=== PATIENT | female | born 1990 | race Caucasian/White ===

== ENCOUNTER 2019-03-30 07:20 | Inpatient (IN) | payer OTHER ==
[~2019-03-30] VITALS: Ht 154.9 cm; Wt 88.5 kg
[2019-03-30] MEDS ORDERED: FERR325E14 PO (07:37)
[2019-03-30] MEDS ORDERED: PREN-380 PO (07:37)
[2019-03-30] MEDS ORDERED: LACTATED RINGERS 1,000 ML IV SCH (07:38)
[2019-03-30] MEDS ORDERED: CITRIC ACID/SODIUM CITRATE 30 ML UDC PO SCH (07:40)
--- NOTE | 2019-03-30 08:06 | NUR ---
PATIENT HAS BEEN SCREENED AND CATEGORIZED LOW NUTRITION RISK. PATIENT WILL BE SEEN WITHIN 7 DAYS OF ADMISSION. 04/05/[address]
[2019-03-30 08:24] LABS: BASOPHILS % (AUTO) 0.4 % (0.0-2.0); EOSINOPHILS # (AUTO) 0.1 K/uL (0-0.4); EOSINOPHILS % (AUTO) 1.1 % (0.0-4.0); HEMATOCRIT 35.8 % (36-48); HEMOGLOBIN 11.9 g/dL (12.0-16.0); LYMPHOCYTES # (AUTO) 1.4 K/uL (2.5-16.5); LYMPHOCYTES % (AUTO) 17.8 % (20.5-51.1); MEAN CORPUSCULAR HEMOGLOBIN 31 pg (27-31); MEAN CORPUSCULAR HGB CONC 33 g/dL (33-37); MEAN CORPUSCULAR VOLUME 92.4 fL (80-94); MONOCYTES # (AUTO) 0.7 K/uL (0.8-1.0); MONOCYTES % (AUTO) 8.8 % (1.7-9.3); NEUTROPHILS # (AUTO) 5.5 K/uL (1.8-7.7); NEUTROPHILS % (AUTO) 71.9 % (42.2-75.2); PLATELET COUNT (AUTO) 84 K/uL (140-450); RED BLOOD CELL COUNT(AUTO) 3.87 MIL/uL (4.20-5.40); RED CELL DISTRIBUTION WIDTH 14.1 % (11.6-13.7); WHITE BLOOD COUNT (AUTO) 7.7 K/uL (4.8-10.8)
[2019-03-30 08:26] LABS: APPEARANCE,URINE CLEAR (CLEAR); BILIRUBIN,URINE NEGATIVE (NEGATIVE); BLOOD, URINE NEGATIVE (NEGATIVE); COLOR,URINE YELLOW (YELLOW); LEUKOCYTE ESTERASE ,URINE NEGATIVE (NEGATIVE); NITRITE, URINE NEGATIVE (NEGATIVE); PH,URINE 6.5 (5.0-9.0); UGLUCOSE NEGATIVE (NEGATIVE)
[2019-03-30 08:41] LABS: PROTHROMBIN TIME 9.3 secs (10.8-13.4)
[2019-03-30] MEDS ORDERED: AMPICILLIN 2,000 MG VIAL ONE (08:45)
[2019-03-30] MEDS ORDERED: MORPHINE PRES FREE 10 MG/10 ML AMP IV ONE (09:49)
[2019-03-30] MEDS ORDERED: DESFLURANE 240 ML BTL INH ONE (10:25)
[2019-03-30] MEDS ORDERED: METOCLOPRAMIDE 10 MG/2 ML INJ VIAL ONE (10:25)
[2019-03-30] MEDS ORDERED: PROPOFOL 200 MG/20 ML VIAL IV ONE (10:25)
[2019-03-30] MEDS ORDERED: SUCCINYLCHOLINE CHLORIDE 200 MG/10 ML VIAL IVP ONE (10:25)
[2019-03-30] MEDS ORDERED: ROCURONIUM 50 MG/5 ML VIAL IV ONE (10:25)
[2019-03-30] MEDS ORDERED: NEOSTIGMINE 1:1000 10 MG/10 ML VIAL ONE (10:25)
[2019-03-30] MEDS ORDERED: DEXAMETHASONE 4 MG/ML VIAL ONE (10:25)
[2019-03-30] MEDS ORDERED: GLYCOPYRROLATE 0.2 MG/ML VIAL ONE (10:25)
[2019-03-30] MEDS ORDERED: ONDANSETRON 4 MG/2 ML VIAL ONE (10:25)
[2019-03-30] MEDS ORDERED: fentaNYL 0.05 MG/ML VIAL ONE (10:52)
[2019-03-30] MEDS ORDERED: MIDAZOLAM 2 MG/2 ML VIAL ONE (10:52)
[2019-03-30] MEDS ORDERED: OXYTOCIN 10 UNITS/ML VIAL ONE (11:10)
[2019-03-30] MEDS ORDERED: HYDROmorphone PFS 2 MG/ML SYR ONE ×2 (11:21→13:16)
[2019-03-30] MEDS ORDERED: OXYTOCIN 20 UNITS in LACTATED RINGERS 1,000 ML IV SCH (13:02)
[2019-03-30] MEDS ORDERED: ONDANSETRON 4 MG/2 ML VIAL IVP PRN (13:05)
[2019-03-30] MEDS ORDERED: OXYTOCIN 20 UNITS/LR PREMIX 1,000 ML IV ONE (13:05)
[2019-03-30] MEDS: HYDROmorphone 1 MG/ML AMP IVP PRN ×4 (13:18→13:48)
[2019-03-30] MEDS ORDERED: MEASLES, MUMPS, AND RUBELLA 1 VIAL SQVAC PRN (13:30)
[2019-03-30] MEDS ORDERED: HYDROmorphone 1 MG/ML AMP IVP PRN (13:30)
[2019-03-30] MEDS: OXYTOCIN 20 UNITS in LACTATED RINGERS 1,000 ML IV SCH (19:35)
[2019-03-30] MEDS: KETOROLAC 30 MG/ML VIAL IVP PRN (20:26)
[2019-03-31] MEDS ORDERED: OXYTOCIN 20 UNITS/LR PREMIX 1,000 ML IV ONE (03:15)
[2019-03-31] MEDS: OXYTOCIN 20 UNITS in LACTATED RINGERS 1,000 ML IV SCH (03:20)
[2019-03-31] MEDS: KETOROLAC 30 MG/ML VIAL IVP PRN ×3 (04:16→22:12)
[2019-03-31] MEDS ORDERED: HYDROmorphone PFS 2 MG/ML SYR IVP PRN (08:25)
[2019-03-31 08:43] LABS: BASOPHILS % (AUTO) 0.2 % (0.0-2.0); EOSINOPHILS % (AUTO) 0.3 % (0.0-4.0); HEMATOCRIT 26.5 % (36-48); HEMOGLOBIN 8.7 g/dL (12.0-16.0); LYMPHOCYTES % (AUTO) 8.8 % (20.5-51.1); MEAN CORPUSCULAR HEMOGLOBIN 31 pg (27-31); MEAN CORPUSCULAR HGB CONC 33 g/dL (33-37); MEAN CORPUSCULAR VOLUME 93.3 fL (80-94); MONOCYTES # (AUTO) 0.7 K/uL (0.8-1.0); MONOCYTES % (AUTO) 6.5 % (1.7-9.3); NEUTROPHILS # (AUTO) 9.6 K/uL (1.8-7.7); NEUTROPHILS % (AUTO) 84.2 % (42.2-75.2); PLATELET COUNT (AUTO) 74 K/uL (140-450); RED BLOOD CELL COUNT(AUTO) 2.85 MIL/uL (4.20-5.40); RED CELL DISTRIBUTION WIDTH 14.3 % (11.6-13.7); WHITE BLOOD COUNT (AUTO) 11.3 K/uL (4.8-10.8)
[2019-03-31] MEDS ORDERED: FUROSEMIDE 40 MG TAB PO SCH (16:15)
[2019-03-31] MEDS ORDERED: FUROSEMIDE 20 MG TAB PO SCH ×2 (16:15→18:00)
[2019-03-31] MEDS ORDERED: FUROSEMIDE 20 MG TAB PO ONE (18:00)
[2019-03-31] MEDS ORDERED: ACETAMINOPHEN 325 MG TAB PO PRN (22:00)
[2019-04-01] MEDS: KETOROLAC 30 MG/ML VIAL IVP PRN (06:04)
[2019-04-01] MEDS ORDERED: SODIUM PHOSPHATE 118 ML ENEM RC PRN (09:00)
[2019-04-01] MEDS: BISACODYL 5 MG TABEC PO SCH (09:35)
[2019-04-01] MEDS: SIMETHICONE 80 MG TAB.CHEW PO SCH ×2 (09:35→13:00)
[2019-04-01] MEDS: DOCUSATE SODIUM 100 MG GELCAP PO SCH (09:35)
[2019-04-01] MEDS: IBUPROFEN 600 MG TAB PO PRN ×2 (11:42→17:17)
[2019-04-02] MEDS: IBUPROFEN 600 MG TAB PO PRN ×2 (02:53→13:23)
[2019-04-02] MEDS: BISACODYL 5 MG TABEC PO SCH ×2 (09:00→13:23)
[2019-04-02] MEDS: DOCUSATE SODIUM 100 MG GELCAP PO SCH (09:43)
[2019-04-03 08:47] LABS: BASOPHILS % (AUTO) 0.3 % (0.0-2.0); EOSINOPHILS # (AUTO) 0.1 K/uL (0-0.4); EOSINOPHILS % (AUTO) 1.7 % (0.0-4.0); HEMATOCRIT 28.1 % (36-48); HEMOGLOBIN 9.2 g/dL (12.0-16.0); LYMPHOCYTES # (AUTO) 1.1 K/uL (2.5-16.5); LYMPHOCYTES % (AUTO) 16.9 % (20.5-51.1); MEAN CORPUSCULAR HEMOGLOBIN 31 pg (27-31); MEAN CORPUSCULAR HGB CONC 33 g/dL (33-37); MEAN CORPUSCULAR VOLUME 93.8 fL (80-94); MONOCYTES # (AUTO) 0.5 K/uL (0.8-1.0); MONOCYTES % (AUTO) 8.6 % (1.7-9.3); NEUTROPHILS # (AUTO) 4.6 K/uL (1.8-7.7); NEUTROPHILS % (AUTO) 72.5 % (42.2-75.2); PLATELET COUNT (AUTO) 119 K/uL (140-450); RED CELL DISTRIBUTION WIDTH 14.4 % (11.6-13.7); WHITE BLOOD COUNT (AUTO) 6.4 K/uL (4.8-10.8)
[2019-04-03] MEDS: SIMETHICONE 80 MG TAB.CHEW PO SCH ×2 (08:57→12:58)
[2019-04-03] MEDS: DOCUSATE SODIUM 100 MG GELCAP PO SCH (08:57)
[2019-04-03] MEDS: BISACODYL 5 MG TABEC PO SCH (08:57)
[2019-04-03] MEDS: IBUPROFEN 600 MG TAB PO PRN (09:00)
[2019-04-03] MEDS ORDERED: INFLUENZA VACCINE QUAD 0.5 ML SYR IM PRN (10:55)
[2019-04-03] MEDS ORDERED: INFLUENZA VACCINE QUAD 0.5 ML SYR IM SCH (11:31)
[2019-04-03] MEDS ORDERED: FERR325E14 PO (12:09)
[2019-04-03] MEDS ORDERED: IBUP-2213 PO (12:11)
== END 2019-04-03 15:25 | disposition home or self-care (01) | DRG 540 ==
LOC: MFCC 07:20
PROVIDERS: ADMIT Obstetrics & Gynecology; ATTEND Obstetrics & Gynecology
PROC: 10D00Z1 Extraction of Products of Conception, Low, Open Approach (ICD-10-PCS; principal; 2019-03-30 10:00)
PROC: 3E0234Z Introduction of Serum, Toxoid and Vaccine into Muscle, Percutaneous Approach (ICD-10-PCS; 2019-04-03)
DX: O34.211 Maternal care for low transverse scar from previous cesarean delivery (principal); Z23 Encounter for immunization; Z37.0 Single live birth; Z3A.38 38 weeks gestation of pregnancy
CPT/HCPCS: 36415; 81003; 85025; 85610; 85730; 86592; 86886; 86900; 86901; 87081; 87086; 90715; J0290; J0330; J0690; J1100; J1170; J1885; J2250; J2270; J2405; J2590; J2704; J2710; J2765; J3010; J3490; J7060; J7120